=== PATIENT | male | born 1995 | race African-American/Black ===

== ENCOUNTER 2020-04-27 10:51 | Emergency (ER) | payer OTHER ==
[2020-04-27] MEDS ORDERED: PERMETHRIN60 GM TOPICAL (11:35)
[2020-04-27] MEDS ORDERED: BENADRYL50 MG PO (11:36)
[2020-04-27 11:50] VITALS: BP 122/54
== END 2020-04-27 11:54 | disposition home or self-care (01) ==
LOC: D.ER 10:51
DX: B86 Scabies (principal)